=== PATIENT | male | born 1955 | race Caucasian/White ===

== ENCOUNTER 2017-08-24 14:34 | Emergency (ER) | payer OTHER ==
[2017-08-24] MEDS ORDERED: Ibuprofen 200 MG Tab, 24 Tab Bulk Bottle PO ONE (16:42)
[2017-08-24] MEDS ORDERED: Ibuprofen 600 MG Tab ONE (17:01)
[2017-08-24] MEDS ORDERED: Ibuprofen 600 MG Tab PO ONE (17:02)
--- NOTE | 2017-08-24 17:09 | EDM.PDOC ---
ED HPI GENERAL MEDICAL PROBLEM - General Chief Complaint: Upper Extremity Injury/Pain Stated Complaint: SHOULDER PAIN Time Seen by Provider: 08/24/17 15:25 Source of Information: Reports: Patient History Limitations: Reports: No Limitations - History of Present Illness INITIAL COMMENTS - FREE TEXT/NARRATIVE: PT WAS PLAYING A GAME AND HE COOLIDED WITH HIS TEAM MATE AND HIT HIS LEFT SHOULDER. hE NOW HAS PAIN AT THE END OF THE CLAVICLE. Onset: Today, Other (HAPPENED ABOUT 2 THIRTY. ) Duration: Hour(s): Location: Reports: Upper Extremity, Left Associated Symptoms: Reports: No Other Symptoms left shoulder Pain Score (Numeric/FACES): 7 - Related Data Allergies Allergy/AdvReac Type Severity Reaction Status Date / Time No Known Allergies Allergy Verified 08/24/17 16:22 Home Meds: Home Meds Carvedilol 12.5 mg PO BID 08/24/17 [History] Lisinopril 10 mg PO DAILY 08/24/17 [History] Past Medical History Cardiovascular History: Reports: Heart Failure - Past Surgical History GI Surgical History: Reports: Appendectomy Social & Family History - Tobacco Use Smoking Status *Q: Never Smoker - Recreational Drug Use Recreational Drug Use: No Review of Systems - Review of Systems Review Of Systems: See Below Constitutional: Reports: No Symptoms Eyes: Reports: No Symptoms Ears: Reports: No Symptoms Nose: Reports: No Symptoms Mouth/Throat: Reports: No Symptoms Respiratory: Reports: No Symptoms Cardiovascular: Reports: No Symptoms GI/Abdominal: Reports: No Symptoms Genitourinary: Reports: No Symptoms Musculoskeletal: Reports: Other (PAIN IN THWE LEFT SHOULDER AFTER HE COLLIDED WITH HIS TEAM MATE. ) Skin: Reports: No Symptoms ED EXAM, GENERAL - Physical Exam Exam: See Below Exam Limited By: No Limitations General Appearance: Alert, Anxious, Moderate Distress Head: Atraumatic Neck: Normal Inspection Respiratory/Chest: No Respiratory Distress Extremities: Other (LEFT SHOULDER IS PAINFUL AT THE END OF THE CLAVICLE. ) Neurological: Alert, Oriented, Normal Cognition Course - Vital Signs Last Recorded V/S: Last Vital Signs Temp 36.4 C 08/24/17 15:22 Pulse 71 08/24/17 15:22 Resp 16 08/24/17 15:22 BP 108/62 08/24/17 15:22 Pulse Ox 98 08/24/17 15:22 - Orders/Labs/Meds Orders: Active Orders 24 hr Category Date Time Status Shoulder Comp Lt [CR] Stat Exams 08/24/17 16:44 Taken Meds: Medications Discontinued Medications Generic Name Dose Route Start Last Admin Trade Name Cami PRN Reason Stop Dose Admin Ibuprofen 600 mg 08/24/17 16:42 08/24/17 17:04 Motrin Bulk Bottle PO 08/24/17 16:43 Not Given ONETIME ONE Ibuprofen 600 mg 08/24/17 17:02 08/24/17 17:03 Motrin PO 08/24/17 17:03 600 mg ONETIME ONE Administration Ibuprofen Confirm 08/24/17 17:01 08/24/17 17:04 Motrin Administered 08/24/17 17:02 Not Given Dose 600 mg .ROUTE .STK-MED ONE - Re-Assessments/Exams Free Text/Narrative Re-Assessment/Exam: 08/24/17 17:17 XRAY REVEALED A CONMUNITED FRACTURE OF THE DISTAL CLAVICLE. Departure - Departure Time of Disposition: 17:07 Disposition: Home, Self-Care 01 Condition: Fair Clinical Impression: Closed fracture of distal clavicle - Discharge Information Instructions: Clavicle Fracture, [id number] Referrals: PCP,None [Primary Care Provider] - Forms: ED Department Discharge Care Plan Goals: [facility], APPT WITH ORTHO IN 1 WEEK. MOTRIN 600MG Q6H PRN FOR PAIN, NORCO 5/325 Q6H PRN FOR PAIN #6 - My Orders Last 24 Hours: My Active Orders 08/24/17 16:44 Shoulder Comp Lt [CR] Stat - Assessment/Plan Last 24 Hours: My Active Orders 08/24/17 16:44 Shoulder Comp Lt [CR] Stat
--- NOTE | 2017-08-25 08:48 | CR ---
Shoulder Comp Lt CLINICAL HISTORY: Pain over distal clavicle FINDINGS: There is a comminuted slightly displaced fracture of the distal clavicle. AC joint shows mi ld asymmetry. Glenohumeral joint is intact. Impression: Comminuted slightly displaced fracture of the distal clavicle AC joint laxity is not excluded
== END 2017-08-24 17:25 | disposition home or self-care (01) ==
LOC: JP.ED 14:34
DX: S42.032A Displaced fracture of lateral end of left clavicle, initial encounter for closed fracture (principal); W51.XXXA Accidental striking against or bumped into by another person, initial encounter
CPT/HCPCS: 73030; 99283; A9270